=== PATIENT | male | born 1985 | race Caucasian/White ===

== ENCOUNTER 2021-05-08 21:05 | Emergency (ER) | payer OTHER ==
[~2021-05-08] VITALS: Ht 185.4 cm; Wt 97.5 kg
[2021-05-09] MEDS ORDERED: KETO10TA2 PO (08:11)
[2021-05-09] MEDS ORDERED: CLINDAMYCIN HC300 MG PO (08:11)
[2021-05-09] MEDS ORDERED: INTESTINEX680 M1 PO (08:11)
[2021-05-19] MEDS ORDERED: ACETAMINOPHEN650 M2 (19:09)
== END 2021-05-09 | disposition home or self-care (01) ==
LOC: ER 21:05
DX: S50.01XA Contusion of right elbow, initial encounter (principal); X58.XXXA Exposure to other specified factors, initial encounter; Y93.89 Activity, other specified; Y92.018 Other place in single-family (private) house as the place of occurrence of the external cause; Y99.8 Other external cause status